=== PATIENT | male | born 1985 | race Caucasian/White ===

== ENCOUNTER 2020-11-09 01:59 | Emergency (ER) | payer SELFPAY ==
[2020-11-09] MEDS ORDERED: Lidocaine 1% w/Epinephrine 1:100K 20 ML VIAL ONE (04:20)
[2020-11-09] MEDS ORDERED: Boostrix 0.5 ML (Tdap) VIAL ONE (04:20)
== END 2020-11-09 05:01 | disposition home or self-care (01) ==
LOC: ERS 01:59
DX: S91.111A Laceration without foreign body of right great toe without damage to nail, initial encounter (principal); I10 Essential (primary) hypertension; F17.210 Nicotine dependence, cigarettes, uncomplicated; W01.198A Fall on same level from slipping, tripping and stumbling with subsequent striking against other object, initial encounter
CPT/HCPCS: 70450; 90715

== ENCOUNTER 2021-06-19 23:11 | Emergency (ER) | payer SELFPAY ==
[2021-06-19 23:59] LABS: #Basophils 0.1 thou/uL (0.0-0.2); #Eosinphils 0.1 thou/uL (0.0-0.7); #Lymphocytes 4.3 thou/uL (1.20-3.40); #Monocytes 0.7 thou/uL (0.11-0.59); #Neutrophils 5.9 thou/uL (1.40-6.50); %Basophils 0.8 % (0.0-1.0); %Eosinophils 0.6 % (0.0-10.0); %Lymphocytes 39.1 % (21.0-51.0); %Monocytes 6.6 % (0.0-10.0); %Neutrophils 52.9 % (42.0-75.0); Hemoglobin 16.5 g/dL (14.0-18.0); Mean Corpuscular HGB CONC 35.2 g/dL (32.0-36.0); Mean Corpuscular Hemoglobin 32.1 pg (27.0-31.0); Mean Corpuscular Volume 91.1 fL (78.0-98.0); Platelet Count 197 thou/uL (130-400); RBC Distribution Width 12.9 % (11.5-14.5); Red Blood Cell (RBC) Count 5.15 mill/uL (4.70-6.10); White Blood Cell (WBC) Count 11.1 thou/uL (4.8-10.8)
[2021-06-20 00:21] LABS: ALT (SGPT) 46 U/L (8-55); AST (SGOT) 27 U/L (5-34); Albumin 3.9 g/dL (3.5-5.0); Alkaline Phosphatase 94 U/L (40-110); Anion Gap 12 mmol/L (10-20); BUN (Urea Nitrogen) 11 mg/dL (8.9-20.6); Bilirubin, Total 0.8 mg/dL (0.2-1.2); Calc. Creatinine Clearance 0 mL/min (70-130); Calcium 9.3 mg/dL (7.8-10.44); Carbon Dioxide 24 mmol/L (22-29); Chloride 107 mmol/L (98-107); Glucose 117 mg/dL (70-105); Potassium 3.7 mmol/L (3.5-5.1); Protein, Total 6.9 g/dL (6.0-8.3); Sodium 139 mmol/L (136-145)
== END 2021-06-20 01:10 | disposition home or self-care (01) ==
LOC: ERS 23:11
DX: R07.9 Chest pain, unspecified (principal); I10 Essential (primary) hypertension; F17.210 Nicotine dependence, cigarettes, uncomplicated
CPT/HCPCS: 71045; 80053; 84484; 85025; 93005; 94760

== ENCOUNTER 2021-07-01 19:23 | Emergency (ER) | payer SELFPAY | END 2021-07-01 21:45 | disposition home or self-care (01) | LOC: ERS 19:23 | DX: M79.644 Pain in right finger(s) (principal); I10 Essential (primary) hypertension; F17.210 Nicotine dependence, cigarettes, uncomplicated ==

== ENCOUNTER 2021-09-08 16:02 | Emergency (ER) | payer SELFPAY ==
[2021-09-08 16:42] LABS: #Basophils 0.1 thou/uL (0.0-0.2); #Lymphocytes 3.3 thou/uL (1.20-3.40); #Monocytes 0.9 thou/uL (0.11-0.59); #Neutrophils 6.8 thou/uL (1.40-6.50); %Basophils 1.1 % (0.0-1.0); %Eosinophils 0.2 % (0.0-10.0); %Lymphocytes 29.8 % (21.0-51.0); %Monocytes 7.8 % (0.0-10.0); %Neutrophils 61.2 % (42.0-75.0); Hemoglobin 16.1 g/dL (14.0-18.0); Mean Corpuscular HGB CONC 33.6 g/dL (32.0-36.0); Mean Corpuscular Hemoglobin 30.5 pg (27.0-31.0); Mean Corpuscular Volume 90.8 fL (78.0-98.0); Mean Platelet Volume 7.9 fL (7.4-10.4); Platelet Count 199 thou/uL (130-400); RBC Distribution Width 12.9 % (11.5-14.5); Red Blood Cell (RBC) Count 5.29 mill/uL (4.70-6.10); White Blood Cell (WBC) Count 11.1 thou/uL (4.8-10.8)
[2021-09-08 17:09] LABS: CKMB 1.2 ng/mL (0-6.6)
[2021-09-08] MEDS ORDERED: Ketorolac Tromethamine 30 MG/ML VIAL ONE (18:22)
== END 2021-09-08 18:57 | disposition home or self-care (01) ==
LOC: ERS 16:02
DX: S60.222A Contusion of left hand, initial encounter (principal); R07.89 Other chest pain; I10 Essential (primary) hypertension; F17.210 Nicotine dependence, cigarettes, uncomplicated; W22.09XA Striking against other stationary object, initial encounter
CPT/HCPCS: 36415; 71045; 82550; 82553; 84484; 85025; 93005; 96372; J1885